=== PATIENT | male | born 2000 | race African-American/Black ===

== ENCOUNTER 2019-01-20 13:52 | Emergency (ER) | payer SELFPAY ==
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
[2019-01-20 16:57] LABS: ABS Lymphocytes 0.9 10^3/ul (1.0-4.8); ABS Monocytes 0.5 10^3/ul (0-0.8); ABS Neutrophils 2.5 10^3/ul (1.5-7.7); Eosinophil % 0.7 %; Hematocrit 46 % (42-52); Hemoglobin 15.5 g/dL (14.0-18.0); Lymphocyte % 23.6 %; Mean Corpuscular HGB Conc 34 g/dL (31-36); Mean Corpuscular Hemoglobin 28 pg (27-31); Mean Corpuscular Volume 82 fL (80-94); Mean Platelet Volume 7.6 fL (7.4-10.4); Nucleated Red Blood Cells % 0.1; Platelet Count 175 10^3/uL (150-450); Red Blood Count 5.64 10^6 /uL (4.18-5.48); Red Cell Distribution Width 13 % (10-15); White Blood Count 3.9 10^3/uL (3.5-10.8)
[2019-01-20 17:13] LABS: Albumin 4.6 g/dL (3.2-5.2); Albumin/Globulin Ratio 1.8 (1-3); BUN/Creatinine Ratio 11.1 (8-20); Calcium 9.9 mg/dL (8.6-10.3); EGFR African American 106.6 (>60); EGFR Non-African American 88.1 (>60); Globulin 2.6 g/dL (2-4); Potassium 3.8 mmol/L (3.5-5.0); Total Protein 7.2 g/dL (6.4-8.9)
[2019-01-20 17:46] LABS: Urine Appearance Clear; Urine Bilirubin Negative (Negative); Urine Blood Negative (Negative); Urine Color Yellow; Urine Glucose Negative (Negative); Urine Ketones Negative (Negative); Urine Nitrite Negative (Negative); Urine Protein Negative (Negative); Urine Specific Gravity 1.011 (1.010-1.030); Urine Urobilinogen Negative (Negative)
[2019-01-20 19:00] VITALS: BP 110/69
== END 2019-01-20 18:55 | disposition home or self-care (01) ==
LOC: ED 13:52
DX: M54.5 Low back pain (principal); R10.9 Unspecified abdominal pain; R11.0 Nausea; R35.0 Frequency of micturition; R31.9 Hematuria, unspecified
CPT/HCPCS: 36415; 80053; 81003; 85025; 85379; 99283